=== PATIENT | female | born 1980 | race African-American/Black ===

== ENCOUNTER 2018-05-04 07:20 | Day surgery (SDC) | payer MEDICARE, MEDICAID ==
--- NOTE | 2018-05-03 12:27 | History and Physical - [place] ---
CHIEF COMPLAINT/HISTORY OF CHIEF COMPLAINT: This patient with a history of intractable cervical radiculopathy has a spinal opioid infusion system in place to manage pain control. Over the last number of refills and reprogramming it was noted that she was having pump battery depletion. She is here for pump battery replacement on an outpatient basis. PAST MEDICAL HISTORY: Hypertension, migraine headaches, sleep apnea, sickle cell disease, and cerebral palsy. PAST SURGICAL HISTORY: Peripheral vascular surgery, breast surgery, and pump implant. MEDICATIONS ON ADMISSION: List to be provided. ALLERGIES: None. FAMILY/PSYCHOSOCIAL HISTORY: Social history - Noncontributory. Family history - Thyroid disease, asthma, coronary artery disease, and hypertension. PHYSICAL EXAMINATION: From the chart, height is 5'3", weight is 190. No vital signs. HEENT: Within normal limits. LUNGS: Clear. HEART: Rapid and regular. ABDOMEN: Nontender. MUSCULOSKELETAL: Examination of the musculoskeletal system shows upper extremity cerebral palsy symptom pattern with contraction and abnormality of the upper extremities. The pump is located in the left posterior superior gluteal margin and the incision is intact. There is an upper and lower extremity pain pattern, upper motor function, sensory function, and abnormal lower extremity pain pattern bilateral legs. NEUROLOGIC: Cranial nerves are intact. IMPRESSION: 1. CERVICAL RADICULOPATHY, ICE-10 CODE M54.12. 2. CEREBRAL PALSY WITH SPASTIC HEMIPLEGIA, ICD-10 CODE G80.2. 3. IMPLANTED SPINAL INFUSION SYSTEM USING HYDROMORPHONE AND BACLOFEN. PLAN: The patient is here on an outpatient basis for battery replacement. No parameter changes will be made. JOB NUMBER: [id number] MTDD
[~2018-05-04 07:20] MED LIST: ACETAMINOPHEN 1,000 MG/100 ML BTL IV ONE; BACLOFEN IV ONE; CEFAZOLIN 2 Gram 2 GM/50 ML BAG IVPB ONE; FAMOTIDINE 20MG TABLET PO ONE; HYDROMORPHONE HCL IV ONE; HYDROMORPHONE PF 2MG/ML AMP 0.008 MG in 0.9 % SODIUM CHLORIDE 10ML VIA 0.996 ML IV ONE; MECLIZINE 25 MG TABLET PO ONE; METOCLOPRAMIDE 10 MG TABLET PO ONE; SODIUM CHLORIDE 0.9% IV ONE
[2018-05-04] MEDS ORDERED: LIDOCAINE 1% W/EPI 1:200,000 MPF 30ML SQ ONE (07:21)
[2018-05-04] MEDS ORDERED: LIDOCAINE 2% MDV (20MG/ML) 20ML VIAL IV ONE (07:21)
[2018-05-04] MEDS ORDERED: MIDAZOLAM HCL 2MG/2ML VIAL IV ONE (07:21)
[2018-05-04] MEDS ORDERED: BUPIVACAINE 0.5% W/EPI MPF 30 ML VIAL IVP ONE (07:21)
[2018-05-04] MEDS ORDERED: DEXTROSE 50 % IVP 50 ML DISP.SYRIN IVP ONE (07:21)
[2018-05-04] MEDS ORDERED: FENTANYL PF 100MCG/2ML VIAL IV ONE (07:21)
[2018-05-04] MEDS ORDERED: PROPOFOL 10 MG/ML VIAL IV ONE (07:21)
--- NOTE | 2018-05-05 20:47 | Operative Note ---
DATE OF SURGERY: 05/04/2018. PREOPERATIVE DIAGNOSES: 1. CERVICAL RADICULOPATHY, ICD-10 CODE = M54.12. 2. CEREBRAL PALSY, ICD-10 CODE = G80.2. 3. INTRASPINAL INFUSION SYSTEM HYDROMORPHONE AND BACLOFEN WITH BATTERY DEPLETION. SURGERY: 1. INCISION, SUBCUTANEOUS DISSECTION, AND REMOVAL AND REPLACEMENT OF PROGRAMMABLE PUMP, 20 ML MEDTRONIC. 2. REVISION AND RESECTION OF SPINAL CATHETER AT POUCH. 3. INTERFACE REVISED CATHETER TO PUMP, 20 ML PREFILLED HYDROMORPHONE AND BACLOFEN. 4. PLACEMENT OF PUMP INTO POUCH SECURING TO FASCIA WITH NONABSORBABLE SUTURE. 5. PLACEMENT OF CURVED #24 GAUGE DAVIS NEEDLE INTO ACCESS PORT PROGRAMMABLE PUMP, ASPIRATION TO CLEAR 1 ML OF CATHETER CONTENTS CLEARING CATHETER OF OPIOID AND CSF MIXTURE. 6. DIAGNOSTIC MYELOGRAPHY WITH RADIOLOGIC SUPERVISION AND INTERPRETATION. 7. CLOSURE OF INCISION USING STRATAFIX SUTURE, #2-0 FASCIA AND #3-0 SKIN, DERMABOND CLOSURE. 8. PROGRAMMING OF PUMP BACK TO ORIGINAL PARAMETERS, HYDROMORPHONE 3.5 MG PER DAY, BACLOFEN 29.3 PER DAY. SURGEON: ANABEL SOUZA D.O. ANESTHESIA: LOCAL SEDATION. ANESTHESIA PROVIDER: RENARD Rodriguez. INDICATIONS: This patient presents with a history of intractable cervical radiculopathy and cerebral palsy. A spinal infusion system with Hydromorphone and Baclofen in place. Over the last number of refills, battery depletion was identified. She is here for battery replacement. SURGERY: Intravenous line, vital sign monitoring, IV sedation, prepped and draped, sterile technique. At the left posterior gluteal margin incision, infiltrated, incision made and subcutaneous dissection was conducted to the Dacron sleeve. The Dacron sleeve was opened and the pump exteriorized. Immediately identified was a catheter with a series of loops all matted into dense scar tissue. The catheter was cut, resected, and revised pulling out the catheter from within the scar tissue. The new revised catheter was then interfaced to a new pump placed onto the field, 20 mL programmable Medtronic prefilled Hydromorphone and Baclofen with original concentrations. The revised catheter was interfaced to the pump. Antibiotic irrigation and Bovie for hemostasis. The pump was then placed into its existing pouch, secured with a nonabsorbable suture one pump eyelet. With the pump into the pouch, a curved # 24 gauge Davis needle was inserted into the access port and 1 mL of catheter contents was aspirated clearing the catheter of opioid and CSF mixture. Diagnostic myelography was then performed, contrast injected through the access port. Contrast under imaging seen moving through the pump/catheter connection. No kinks, leaks, or bends. Catheter tip mid to upper thoracic identified with appropriate flow characteristics noted. Functionality of the system was then confirmed. With the pump in the pouch, the incision was closed using STRATAFIX suture, #2-0 fascia and #3-0 skin, Dermabond closure. The pump was then programmed back to original parameters; Hydromorphone 3.5, Baclofen 29.3 per day. She was transported to the Recovery Room stable, no side-effects from the procedure or the sedation. DISCHARGE INSTRUCTIONS: 1. The site is to remain clean and dry. No showering or bathing in any way that would disrupt dressings. If it happens, contact the clinic. 2. Standard medications will be resumed including Levaquin, the antibiotic, 500 mg once a day for 14 days. 3. Spinal opioid side-effects; respiratory depression, nausea, vomiting, constipation, urinary retention, lightheadedness, or rash have been discussed. 4. The office will contact the patient in 24 to 48 hours to set up a time in 7 to 10 days for us to evaluate the site. Until then, activities should stay low and controlled. All other instructions provided, numbers to contact if problems given. She will be discharged. cc: Dr. Dameon Ramos JOB NUMBER: [id number] MTDD
== END 2018-05-04 10:25 | disposition home or self-care (01) ==
LOC: SUR 07:20
PROVIDERS: ATTEND Pain Medicine Interventional Pain Medicine
DX: T85.695A Other mechanical complication of other nervous system device, implant or graft, initial encounter (principal); M54.12 Radiculopathy, cervical region; G80.2 Spastic hemiplegic cerebral palsy; G47.39 Other sleep apnea; D57.1 Sickle-cell disease without crisis
CPT/HCPCS: 62368; 62360; 00300; Q9967; J3010; J0690; J1170